=== PATIENT | female | born 1975 | race Caucasian/White ===

== ENCOUNTER 2019-03-11 07:26 | Emergency (ER) | payer BC ==
[~2019-03-11] VITALS: Ht 170.2 cm; Wt 83.0 kg
[2019-03-11 07:36] VITALS: BP 127/91
[2019-03-11] MEDS ORDERED: DEXAMETHASONE SOD PHOSPHATE 10 MG/ML VIAL ONE (07:57)
[2019-03-11] MEDS ORDERED: KETOROLAC TROMETHAMINE INJ 60 MG/2 ML VIAL IM ONE ×2 (07:58→08:00)
[2019-03-11] MEDS ORDERED: LORAZEPAM INJ 2 MG/ML VIAL ONE (07:58)
[2019-03-11] MEDS ORDERED: DEXAMETHASONE SOD PHOSPHATE 10 MG/ML VIAL IM ONE (08:00)
[2019-03-11] MEDS ORDERED: LORAZEPAM INJ 2 MG/ML VIAL IM ONE (08:00)
== END 2019-03-11 09:25 | disposition home or self-care (01) ==
LOC: ER 07:32
DX: M54.6 Pain in thoracic spine (principal); Z90.89 Acquired absence of other organs; Z98.890 Other specified postprocedural states; Z88.2 Allergy status to sulfonamides
CPT/HCPCS: 96372 ×2; 99283; J1100; J1885; J2060

== ENCOUNTER 2019-03-14 11:03 | Emergency (ER) | payer BC ==
[~2019-03-14] VITALS: Ht 167.6 cm; Wt 81.6 kg
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
[2019-03-14] MEDS ORDERED: MORPHINE SULFATE INJ 4 MG/ML DISP.SYRIN ONE (11:27)
[2019-03-14] MEDS ORDERED: KETOROLAC TROMETHAMINE INJ 30 MG/ML VIAL ONE (11:27)
[2019-03-14] MEDS ORDERED: ONDANSETRON 4 MG TAB.RAPDIS ONE (11:27)
--- NOTE | 2019-03-14 11:28 | NUR ---
CALLED [facility] AND LEFT A MESSAGE ASKING FOR A CERVICAL SPINE FOR NERVE COMPRESSION
[2019-03-14] MEDS ORDERED: MORPHINE SULFATE INJ 2 MG/ML DISP.SYRIN IM ONE (11:30)
[2019-03-14] MEDS ORDERED: KETOROLAC TROMETHAMINE INJ 60 MG/2 ML VIAL IM ONE (11:30)
[2019-03-14] MEDS ORDERED: ONDANSETRON 4 MG TAB.RAPDIS SL ONE (11:30)
[2019-03-14] MEDS ORDERED: LORAZEPAM 1 MG TABLET ONE (11:51)
[2019-03-14] MEDS ORDERED: LORAZEPAM 1 MG TABLET PO ONE (12:00)
[2019-03-14] MEDS ORDERED: oxyCODONE/APAP (5/325 MG) 1 UDTAB TABLET ONE (13:24)
--- NOTE | 2019-03-14 13:27 | NUR ---
Patient discharged to home in stable condition. Written and verbal after care instructions given. Patient verbalizes understanding of instruction.
[2019-03-14 13:29] VITALS: BP 132/85
[2019-03-14] MEDS ORDERED: oxyCODONE/APAP (5/325 MG) 1 UDTAB TABLET PO ONE (13:30)
--- NOTE | 2019-03-14 13:30 | NUR ---
ADMINISTERED 2 PERCOCET 5/325MG PO. FOR 8/10 PS R SHOULDER.
== END 2019-03-14 13:29 | disposition home or self-care (01) ==
LOC: ER 11:03
DX: M54.12 Radiculopathy, cervical region (principal); M25.511 Pain in right shoulder; Z90.89 Acquired absence of other organs; Z88.2 Allergy status to sulfonamides
CPT/HCPCS: 72141; 96372 ×2; 99284; J1885; J2270; Q0162